=== PATIENT | female | born 1965 | race Caucasian/White ===

== ENCOUNTER 2024-04-26 14:09 | Inpatient (IN) | payer MEDICAID, OTHER ==
[~2024-04-26] VITALS: Ht 154.9 cm; Wt 74.3 kg
--- NOTE | 2024-04-26 14:32 | ECG ---
[facility] Test Date: 2024-04-26 Test Time: 14:31:17 Pat Name: CAESAR SMITH Department: ER Room: Gender: F Ware Dresser: LILI : 1965 Requested By: NURIA PADILLA Order Number: [id number] Reading MD: Measurements Intervals [place] Rate: 111 P: 77 ND: 201 QRS: 73 QRSD: 60 T: -71 QT: 276 QTc: 375 Interpretive Statements Sinus tachycardia Borderline prolonged ND interval Biatrial enlargement Low voltage, precordial leads Anteroseptal infarct, old Borderline repolarization abnormality Baseline wander in lead(s) II,V5 Please click the below link to view image of tracing.
--- NOTE | 2024-04-26 14:34 | ED.PDOC ---
History of Present Illness HPI Comments 59-year-old female came to the ER stating that she has been having palpitations for the past few days. She also states that she was eating something when some of the food got stuck in her throat causing her to rash nausea vomiting. She is unable to tolerate any liquids or solid food. She did go to [facility] yesterday for which she patient admitted. Patient left [facility] because no one was taking care of her. After leaving the hospitalist she came here. Her heart rate was 126. She does have a history of SVT hypotension. She does take metoprolol daily. She denies shortness a breath. She denies any other symptoms. Chief Complaint: Palpitations Time Seen by MD: 14:24 Primary Care Provider: none Reviewed Notes: Nurses Notes, Medications, Allergies Allergies: Coded Allergies: Erythromycin (Verified Allergy, Unknown, 04/26/24) Morphine (Verified Allergy, Unknown, 04/26/24) Information Source: Patient Mode of Arrival: Ambulatory Severity: Moderate Timing: Days Duration: Since onset Past Medical History PAST MEDICAL HISTORY: HTN Surgical History: Denies all surgeries MANAGER INTRANET History: No Pertinent MANAGER INTRANET History Social History Smoker: Non-Smoker Alcohol: Denies ETOH Use Drugs: Denies Drug Use Constitutional: denies: chills, diaphoresis, fatigue, fever, malaise, sweats, weakness, others EENTM: denies: blurred vision, double vision, ear bleeding, ear discharge, ear drainage, ear pain, ear ringing, eye pain, eye redness, hearing loss, mouth pain, mouth swelling, nasal discharge, nose bleeding, nose congestion, nose pain, photophobia, tearing, throat pain, throat swelling, voice changes, others Respiratory: denies: cough, hemoptysis, orthopnea, SOB at rest, shortness of breath, SOB with excertion, stridor, wheezing, others Cardiovascular: reports: palpitations; denies: chest pain, dizzy spells, diaphoresis, Dyspnea on exertion, edema, irregular heart beat, left arm pain, lightheadedness, PND, syncope, others Gastrointestinal: denies: abdomen distended, abdominal pain, blood streaked bowels, constipated, diarrhea, dysphagia, difficulty swallowing, hematemesis, melena, nausea, poor appetite, poor fluid intake, rectal bleeding, rectal pain, vomiting, others Genitourinary: denies: abnormal vagina bleeding, burning, dyspareunia, dysuria, flank pain, frequency, hematuria, incontinence, pain, , vagina discharge, urgency, others Neurological: denies: dizziness, fainting, headache, left sided numbness, left sided weakness, numbness, paresthesia, pre-existing deficit, right sided numbness, right sided weakness, seizure, speech problems, tingling, tremors, weakness, others Musculoskeletal: denies: back pain, gout, joint pain, joint swelling, muscle pain, muscle stiffness, neck pain, others Integumetry: denies: bruises, change in color, change in hair/nails, dryness, laceration, lesions, lumps, rash, wounds, others Allergic/Immunocompromised: denies: Difficulty Healing, Frequent Infections, Hives, Itching, others Hematologic/Lymphatic: denies: anemia, blood clots, easy bleeding, easy bruising, swollen glands, others Endocrine: denies: excessive hunger, excessive sweating, excessive thirst, excessive urination, flushing, intolerance to cold, intolerance to heat, unexplained weight gain, unexplained weight loss, others Psychiatric: denies: anxiety, bipolar disorder, depression, hopeless, panic disorder, schizophrenia, sleepless, suicidal, others Physical Exam General Appearance: Moderate Distress HEENT: Normal ENT Inspection, Pharynx Normal, TMs Normal Neck: Full Range of Motion, Non-Tender, Normal, Normal Inspection Respiratory: Chest Non-Tender, Lungs Clear, No Accessory Muscle Use, No Respiratory Distress, Normal Breath Sounds Cardiovascular: Tachycardia Breast Exam: Deferred Gastrointestinal: No Organomegaly, Non Tender, No Pulsatile Mass, Normal Bowel Sounds, Soft Genitalia: Deferred Pelvic: Deferred Rectal: Deferred Extremities: No calf tenderness, Normal capillary refill, Normal inspection, Normal range of motion, Non-tender, No pedal edema Musculoskeletal : Apperance: Normal Neurologic: Alert, retread builder II-XII nml as Tested, No Motor Deficits, Normal Affect, Normal Mood, No Sensory Deficits Cerebellar Function: Normal Reflexes: Normal Skin: Dry, Normal Color, Warm Peripheral Pulses: 3+ Radial (R), 3+ Radial (L) Lymphatic: No Adenopathy Was a procedure done? Was a procedure done?: No Differential Dx Considerations may include: Foreign body Tachycardia X-Ray, Labs, Meds, VS Vital Signs Date Time Temp Pulse Resp B/P (MAP) Pulse Ox O2 Delivery O2 Flow Rate FiO2 04/26/24 14:21 98.3 120 17 118/84 (95) 94 Lab Test 04/26/24 14:35 Range/Units White Blood Count 9.5 4.4-10.8 10^3/uL Red Blood Count 5.22 H 4.0-5.20 10^6/uL Hemoglobin 15.9 12.2-16.2 g/dL Hematocrit 47.3 H 36.0-46.0 % Mean Corpuscular Volume 90.5 80.0-100.0 fL Mean Corpuscular Hemoglobin 30.5 28.0-32.0 pg Mean Corpuscular Hemoglobin Concent 33.6 32.0-36.0 g/dL Red Cell Distribution Width 13.3 11.8-14.3 % Platelet Count 263 140-450 10^3/uL Mean Platelet Volume 7.6 6.9-10.8 fL Neutrophils (%) (Auto) 72.1 37.0-80.0 % Lymphocytes (%) (Auto) 20.2 10.0-50.0 % Monocytes (%) (Auto) 6.7 0.0-12.0 % Eosinophils (%) (Auto) 0.4 0.0-7.0 % Basophils (%) (Auto) 0.6 0.0-2.0 % Neutrophils # (Auto) 6.8 1.6-8.6 10 ^3/uL Lymphocytes # (Auto) 1.9 0.4-5.4 10 ^3/uL Monocytes # (Auto) 0.6 0-1.3 10 ^3/uL Eosinophils # (Auto) 0 0-0.8 10 ^3/uL Basophils # (Auto) 0.1 0-0.2 10 ^3/uL Nucleated Red Blood Cells 0.1 % Sodium Level Pending Potassium Level Pending Chloride Level Pending Carbon Dioxide Level Pending Anion Gap Pending Blood Urea Nitrogen Pending Creatinine Pending Glomerular Filtration Rate Calc Pending BUN/Creatinine Ratio Pending Serum Glucose Pending Calcium Level Pending Phosphorus Level Pending Magnesium Level Pending Troponin I High Sensitivity Pending B-Type Natriuretic Peptide Pending Patient alert. Complaining of palpitations. Has a foreign body sensation in her esophagus. Vital stable. Answering all questions. She was given metoprolol. EKG reviewed does not show any acute changes. Considering glucagon. GI consultation for possible endoscope. Explained to the patient. Continue monitoring. Time of 1ST Reevaluation: 14:31 Reevaluation 1ST: Unchanged Patient Education/Counseling: Diagnosis, Treatment, Prognosis Family Education/Counseling: No Family Present Departure 1 Departure Time of Disposition: 14:33 Impression: Primary Impression: Chest pain of unknown etiology Additional Impressions: Palpitations Tachycardia Disposition: ADMITTED INPATIENT Admit to: Med Surg Condition: Guarded Critical Care Note Critical Care Time?: No Stability Stability form required: No Heart Score Heart Score: Heart Score Response (Comments) Value History Slightly Suspicious 0 EKG Normal 0 Age <45 0 Risk Factors No known risk factors 0 Troponin Normal limit 0 Total 0 JAMES CALLOWAY MD Apr 26, 2024 14:34
[2024-04-26 15:07] LABS: Basophils # (auto) 0.1 10 ^3/uL (0-0.2); Basophils % (auto) 0.6 % (0.0-2.0); Eosinophils # (auto) 0 10 ^3/uL (0-0.8); Eosinophils % (auto) 0.4 % (0.0-7.0); Hematocrit 47.3 % (36.0-46.0); Hemoglobin 15.9 g/dL (12.2-16.2); Lymphocytes # (auto) 1.9 10 ^3/uL (0.4-5.4); Lymphocytes % (auto) 20.2 % (10.0-50.0); Mean Corpuscular Hemoglobin 30.5 pg (28.0-32.0); Mean Corpuscular Hgb Conc. 33.6 g/dL (32.0-36.0); Mean Corpuscular Volume 90.5 fL (80.0-100.0); Monocytes # (auto) 0.6 10 ^3/uL (0-1.3); Monocytes % (auto) 6.7 % (0.0-12.0); Neutrophils # (auto) 6.8 10 ^3/uL (1.6-8.6); Neutrophils % (auto) 72.1 % (37.0-80.0); Nucleated Red Blood Cells % 0.1 %; Platelet Count (auto) 263 10^3/uL (140-450); Red Blood Cells 5.22 10^6/uL (4.0-5.20); Red Cell Distribution Width 13.3 % (11.8-14.3); White Blood Cell 9.5 10^3/uL (4.4-10.8)
[2024-04-26 15:12] LABS: Chloride 106 mmol/L (98-107); Potassium 3.7 mmol/L (3.5-5.1); Sodium 143 mmol/L (136-145)
[2024-04-26 15:13] LABS: Anion Gap 15 (5-15); Carbon Dioxide 22 mmol/L (20-31)
[2024-04-26 15:18] LABS: BUN/Creatinine Ratio 14.3 (10.0-20.0); Blood Urea Nitrogen 13 mg/dL (9-23); Glucose 91 mg/dL (74-106)
[2024-04-26 15:20] LABS: Phosphorus 3.7 mg/dL (2.4-5.1)
[2024-04-26 15:30] LABS: Calcium 10.7 mg/dL (8.7-10.4)
--- NOTE | 2024-04-26 15:42 | DVH ---
CLINICAL INFORMATION: 59 years old, Female; palpitations. TECHNIQUE: Single AP portable chest radiograph was obtained. COMPARISON: None FINDINGS: Lungs: Clear. Cardiac: Heart size is within normal limits. Pulmonary vasculature: Unremarkable. Mediastinum/arianne: Unremarkable. Bones: No acute osseous abnormality identified. Other: No other significant findings. IMPRESSION: No evidence of acute disease in the chest.
[2024-04-26 18:00] VITALS: RESP 16
[2024-04-26] MEDS: METOPROLOL TARTRATE 50 MG TAB PO ONE (18:02)
[2024-04-26] MEDS: SODIUM CHLORIDE 0.9% 1,000 ML IV ONE (18:03)
[2024-04-26 21:00] VITALS: RESP 16
[2024-04-26] MEDS: METOCLOPRAMIDE HCL 5MG/ml INJ 2ml VIAL IV ONE (22:03)
[2024-04-26 22:31] VITALS: BP 103/53; PULSE 103; RESP 18; TEMP 98.9; O2SAT 94
--- NOTE | 2024-04-26 22:48 | DVHHPRES ---
History of Present Illness Resident Creating Document: MINISTERIO PICKETT RESDIENT History of Present Illness This is 59-year-old female with past medical history of nonsustained ventricular tachycardia, asthma came to the hospital due to choking. Per patient, the patient was taking her breakfast (soap), felt that something is got stuck in her throat and caused her to vomit 2 times. Since morning time, the patient feels that some food got stuck in her throat. She was admitted at [facility] [place] yesterday, but per patient due to not getting proper care, patient left AMA. She also reports nausea, dysphagia, productive cough with mucus informed consent and mild substernal chest pain. Patient denies fever, palpitation, abdominal pain, diarrhea, or any recent sick contact PMHx: nonsustained ventricular tachycardia, asthma and per patient she was also has hiatal hernia PSHx: Cholecystectomy, appendectomy, lymphangioma (status post surgery, benign), bilateral tubal ligation Social history: Ex-smoker with 10 pack year history, denies current drug use Home medication: Metoprolol succinate 100 mg at morning time and 50 mg at evening time since 2018 Allergic history: Erythromycin and morphine Review of Systems Review of Systems General: patient denies fever, fatigue, weaknes, sweating, any recent changes in appetite and weight HEENT: No headaches, visiual changes, hearing loss, tinnitus, nasal congestion and discharge, and sore throat. Cardiovascular: Reports mild chest pain Respiratory: Reports choking Gastrointestinal: Reports nausea, and vomiting Genitourinary: No dysuria, hematuria, discharge, frequency, urgency, nocturia, incontinence, and urinary retention. Endocrine: No heat or cold intolerance, polydipsia, polyuria, and polyphagia. Neurological: No dizziness, extremity weakness and numbness, tremors, gait disturbance, seizures, and memory impairment. Psychiatric: Denies depression, anxiety,or insomnia. Musculoskeletal: Denies neck pain, stiffness and swelling, back pain, muscle weakness, joint pain, stiffness, swelling, or limited range of motion. Skin: No rashes, itching, skin lesion, changes in hair, nail, skin texture and breast. Hematologic/Lymphatic: Denies easy bruising, bleeding tendencies, or lymph node enlargement. Allergies: Coded Allergies: Erythromycin (Verified Allergy, Unknown, 04/26/24) Morphine (Verified Allergy, Unknown, 04/26/24) Exam Vital Signs Vital Signs Date Time Temp Pulse Resp B/P (MAP) Pulse Ox O2 Delivery O2 Flow Rate FiO2 04/26/24 21:47 98.9 103 18 103/53 (70) 94 98.9 04/26/24 18:00 Room Air* 0 21 Exam General Appearance: Alert, Oriented X3, Cooperative, No acute distress HEENT: Atraumatic, PERRLA, EOMI, Mucous membrane moist/pink Respiratory: Clear to auscultation, Normal air movement Cardiovascular: Regular rate, Normal S1, Normal S2, No murmurs, no chest wall tenderness Abdominal: Normal bowel sounds, Soft, No tenderness, No hepatospenomegaly, No masses Extremities: No clubbing, No cyanosis, No edema, Normal pulses, No tenderness/swelling Skin: No rashes, No breakdown, No significant lesion Neuro: Normal gait, Normal speech, Strength at 5/5 X4 ext, Normal tone, Sensation intact, Cranial nerves 3-12 NL, Reflexes 2+ Psych/Mental Status: Mental status NL, Mood NL Labs/Xrays Labs Test 04/26/24 14:35 Range/Units White Blood Count 9.5 4.4-10.8 10^3/uL Red Blood Count 5.22 H 4.0-5.20 10^6/uL Hemoglobin 15.9 12.2-16.2 g/dL Hematocrit 47.3 H 36.0-46.0 % Mean Corpuscular Volume 90.5 80.0-100.0 fL Mean Corpuscular Hemoglobin 30.5 28.0-32.0 pg Mean Corpuscular Hemoglobin Concent 33.6 32.0-36.0 g/dL Red Cell Distribution Width 13.3 11.8-14.3 % Platelet Count 263 140-450 10^3/uL Mean Platelet Volume 7.6 6.9-10.8 fL Neutrophils (%) (Auto) 72.1 37.0-80.0 % Lymphocytes (%) (Auto) 20.2 10.0-50.0 % Monocytes (%) (Auto) 6.7 0.0-12.0 % Eosinophils (%) (Auto) 0.4 0.0-7.0 % Basophils (%) (Auto) 0.6 0.0-2.0 % Neutrophils # (Auto) 6.8 1.6-8.6 10 ^3/uL Lymphocytes # (Auto) 1.9 0.4-5.4 10 ^3/uL Monocytes # (Auto) 0.6 0-1.3 10 ^3/uL Eosinophils # (Auto) 0 0-0.8 10 ^3/uL Basophils # (Auto) 0.1 0-0.2 10 ^3/uL Nucleated Red Blood Cells 0.1 % Sodium Level 143 136-145 mmol/L Potassium Level 3.7 3.5-5.1 mmol/L Chloride Level 106 98-107 mmol/L Carbon Dioxide Level 22 20-31 mmol/L Anion Gap 15 5-15 Blood Urea Nitrogen 13 9-23 mg/dL Creatinine 0.91 0.550-1.02 mg/dL Glomerular Filtration Rate Calc 74 >90 mL/min BUN/Creatinine Ratio 14.3 10.0-20.0 Serum Glucose 91 74-106 mg/dL Calcium Level 10.7 H 8.7-10.4 mg/dL Phosphorus Level 3.7 2.4-5.1 mg/dL Magnesium Level 2.2 1.6-2.6 mg/dL Troponin I High Sensitivity < 3 L </=34 ng/L B-Type Natriuretic Peptide 41.92 0-100 pg/mL Assessment/Plan Assessment/Plan Dysphagia, likely due to hiatal hernia History of hiatal hernia Chest x-ray and shows no acute intra thoracic abnormality, EKG shows normal sinus rhythm Protonix and metoclopramide IV fluid History of nonsustained ventricular tachycardia Continue metoprolol DIET: Cardiac diet DVT PROPHYLAXIS: Lovenox GI PROPHYLAXIS:: Protonix CODE STATUS: Goal of care discussed for more than 21 minutes, full code DISPOSITION: Med/surge Patient's status and paln discussed with the patient. Case discussed with Dr. Mackenzie Plan discussed with: Patient, Other (RN) Date of Service: Apr 27, 2024 Billing Provider: GUILLERMINA MACKENZIE MD Common Visit Codes: [id number] INP/OBS CARE (HIGH) MINISTERIO PICKETT RESDIJAME Apr 26, 2024 22:48 GUILLERMINA MACKENZIE MD Apr 28, 2024 09:36
[2024-04-26] MEDS ORDERED: METO1TAB9 (22:52)
[2024-04-26] MEDS ORDERED: LEVA1AER PO (22:52)
[2024-04-27] VITALS (7 sets, daily range): BP systolic 93–125; BP diastolic 46–68; PULSE 81–120; RESP 14–20; TEMP 97.7–98.1; O2SAT 93–97
[2024-04-27] MEDS: SODIUM CHLORIDE 0.9% 500 ML IV ONE (01:00)
[2024-04-27] MEDS ORDERED: ACETAMINOPHEN 325 MG TAB PO PRN (01:00)
[2024-04-27] MEDS ORDERED: HYDROcodone-ACET 5/325MG TAB PO PRN (01:00)
[2024-04-27] MEDS: ENOXAPARIN SOD 40 MG/0.4 ML SYRINGE SC ONE (02:28)
[2024-04-27] MEDS: METOCLOPRAMIDE HCL 5MG/ml INJ 2ml VIAL IV ONE (02:28)
[2024-04-27] MEDS: SODIUM CHLORIDE 0.9% 1,000 ML IV ONE (02:28)
[2024-04-27 06:50] LABS: Basophils # (auto) 0 10 ^3/uL (0-0.2); Basophils % (auto) 0.4 % (0.0-2.0); Eosinophils # (auto) 0.1 10 ^3/uL (0-0.8); Hematocrit 44.1 % (36.0-46.0); Hemoglobin 14.3 g/dL (12.2-16.2); Lymphocytes # (auto) 2.2 10 ^3/uL (0.4-5.4); Lymphocytes % (auto) 25.6 % (10.0-50.0); Mean Corpuscular Hemoglobin 30.7 pg (28.0-32.0); Mean Corpuscular Hgb Conc. 32.3 g/dL (32.0-36.0); Mean Corpuscular Volume 95.1 fL (80.0-100.0); Monocytes # (auto) 0.7 10 ^3/uL (0-1.3); Monocytes % (auto) 8.1 % (0.0-12.0); Neutrophils # (auto) 5.5 10 ^3/uL (1.6-8.6); Neutrophils % (auto) 64.9 % (37.0-80.0); Nucleated Red Blood Cells % 0.1 %; Platelet Count (auto) 221 10^3/uL (140-450); Red Blood Cells 4.64 10^6/uL (4.0-5.20); Red Cell Distribution Width 13.9 % (11.8-14.3); White Blood Cell 8.5 10^3/uL (4.4-10.8)
[2024-04-27 07:10] LABS: Alanine Aminotransferase 27 U/L (7-40); Albumin 4.3 g/dL (3.2-4.8); Alkaline Phosphatase 68 U/L (46-116); Anion Gap 12 (5-15); Aspartate Aminotransferase 19 U/L (13-40); Bilirubin, Total 0.7 mg/dL (0.2-1.0); Calcium 9.4 mg/dL (8.7-10.4); Carbon Dioxide 21 mmol/L (20-31); Glucose 83 mg/dL (74-106); Potassium 3.6 mmol/L (3.5-5.1); Sodium 145 mmol/L (136-145); Total Protein 6.7 g/dL (5.7-8.2)
[2024-04-27 07:13] LABS: BUN/Creatinine Ratio 15.4 (10.0-20.0); Blood Urea Nitrogen 12 mg/dL (9-23)
[2024-04-27 07:15] LABS: Chloride 112 mmol/L (98-107)
[2024-04-27] MEDS: METOPROLOL SUCCINATE XL 50 MG TAB PO SCH ×2 (11:18→21:48)
--- NOTE | 2024-04-27 15:11 | DVHPNRES ---
Progress Note Date Seen: Apr 27, 2024 Resident Creating Document: SUSHANT RAGSDALE RESIDENT Has the PT tested + for MRSA If YES, has PT been informed?: No Medical Necessity Reason Pt with a Central, PICC or Fol: No Medical Necessity Reason Dysphagia Subjective Review of Systems This is 59-year-old female with past medical history of nonsustained ventricular tachycardia, hiatal hernia, and asthma came to the hospital due to choking. According to the patient, she was eating breakfast yesterday when she chocked on the food and liquid. She chocked on the liquid and solids. ad she vomited twice. She called EMS. Since morning time, the patient feels that some food got stuck in her throat. She was admitted at [facility] yesterday, but per patient due to not getting proper care, patient left AMA. She also reports nausea, dysphagia, productive cough with mucus informed. This is the about the 3times she is experiences this dyspepsia. She denied any weight loss, Patient denies fever, palpitation, abdominal pain, diarrhea, or any recent sick contact. Her home medication include Metoprolol succinate 100 mg at morning time and 50 mg at evening time since 2018. Her vitals data were 98.3. HR: 120, RR: 17, bp: 118/84. WBC: 9.5, HGB: 15.9. Chest x-ray revealed No evidence of acute disease in the chest. Constitutional: Denies fever no chills no feeling of malaise HEENT: Denies headache, ear pain, ear discharges, conjunctivitis, nasal discharge throat pain Cardiovascular: Denies chest pain, palpitation, orthopnea, PND, or pedal edema, fast heart rate Respiratory: Denies shortness of breath, cough cough, sputum production, hemoptysis, GI: Denies abdominal pain, nausea, vomiting, diarrhea, hematemesis, hematochezia, : Denies frequency, urgency, hematuria, Endocrine: Denies unintentional weight gain or weight loss, feeling of hot flashes, [place]: Denies easy bruising, bleeding disorders, epistaxis Musculoskeletal: Denies joint pains, muscle aches Psych: No evidence of depression, kenroy, suicidal ideation Objective vital signs Vital Sign Date Time Temp Pulse Resp B/P (MAP) Pulse Ox O2 Delivery O2 Flow Rate FiO2 04/27/24 12:51 97.8 120 15 103/54 (70) 96 97.8 04/27/24 00:24 Room Air* 0 21 Total Intake and Output 04/26/24 04/26/24 04/27/24 15:00 23:00 07:00 Intake Total 1000 ml 300 ml Balance 1000 ml 300 ml medications Current Medications Medications Dose Ordered Sig/Ricki Route Start Time Stop Time Status Last Admin Dose Admin Metoclopramide HCl 5 mg Q8HPRN PRN IV 04/27/24 01:00 Enoxaparin Sodium 40 mg DAILY SC 04/28/24 10:00 Acetaminophen 650 mg Q4HP PRN PO 04/27/24 01:00 Acetaminophen/ Hydrocodone Bitart 1 tab Q8HPRN PRN PO 04/27/24 01:00 Metoprolol Succinate 100 mg DAILY PO 04/27/24 10:00 04/27/24 11:18 100 MG Metoprolol Succinate 50 mg HS PO 04/27/24 22:00 Examination General Appearance: Alert, Oriented X3, Cooperative, No acute distress HEENT: Atraumatic, PERRLA, EOMI, Mucous membrane moist/pink Respiratory: Clear to auscultation, Normal air movement Cardiovascular: Tachycardia, Normal S1, Normal S2, No murmurs, no chest wall tenderness Abdominal: NO distention, no tenderness, bowel sounds present, no scars noted Extremities: No clubbing, No cyanosis, No edema, Normal pulses, No tenderness/swelling Skin: No rashes, No breakdown, No significant lesion Neuro: Normal gait, Normal speech, Strength at 5/5 X4 ext, Normal tone, Sensation intact, Cranial nerves 3-12 NL, Reflexes 2+ Psych/Mental Status: Mental status NL, Mood NL laboratory and microbiology Laboratory Tests 04/27/24 06:02 Test 04/27/24 06:02 Range/Units Serum Glucose 83 74-106 mg/dL Problem List/Assessment/Plan Problem List/Assessment/Plan Assessment Dysphagia rule out diffused esophageal spasm versus esophageal web. Sinus tachycardia (ekg) episode of hypotension Asthma hiatal hernia Plan Urinalysis UDS GI consult Monitor patient's heart and BP closely. She has received 1 leter a125ml/hr. if her blood pressure continues to remain low, I will consider adding Amiodarone bolus and drip Code status: Full Goal of care discussed for more than 30 minute Case and plan discussed with Dr. Baumann Plan discussed with: Patient My Orders My Orders Orders - SUSHANT RAGSDALE Procedure Category Date Status Time * Gi Dvh D[place]man CONS 04/27/24 Transmitted 14:08 Date of Service: Apr 27, 2024 Billing Provider: TOO BAUMANN MD Common Visit Codes: [id number] INP/OBS CARE(HIGH) SUSHANT RAGSDALE Apr 27, 2024 15:10 TOO BAUMANN MD Apr 27, 2024 21:55
--- NOTE | 2024-04-27 16:07 | DVHCONRES ---
Date Seen: Apr 27, 2024 Resident Creating Document: SANTIAGO STERLING RESIDENT History of Present Illness This is 59-year-old female with past medical history of nonsustained ventricular tachycardia, asthma came to the hospital due to choking. Per patient, the patient was taking her breakfast, felt that something is got stuck in her throat and caused her to vomit 2 times. Since morning time, the patient feels that some food got stuck in her throat. She was admitted at [facility] yesterday, but per patient due to not getting proper care, patient left AMA. She also reports nausea, dysphagia, productive cough with mucus informed consent and mild substernal chest pain. Patient denies fever, palpitation, abdominal pain, diarrhea, or any recent sick contact She has had 4 episodes past 6 months. Only happens with meat. No halitosis. PMHx: nonsustained ventricular tachycardia, asthma and per patient she was also has hiatal hernia PSHx: Cholecystectomy, appendectomy, lymphangioma (status post surgery, benign), bilateral tubal ligation Social history: Ex-smoker with 10 pack year history, denies current drug use Home medication: Metoprolol succinate 100 mg at morning time and 50 mg at jh brady time since 2017 Allergic history: Erythromycin and morphine Patient seen and examined at the bedside. Family History: MS (multiple sclerosis) G8 MOTHER Mitral valve disorder G8 FATHER Allergies: Coded Allergies: Erythromycin (Verified Allergy, Unknown, 04/26/24) Morphine (Verified Allergy, Unknown, 04/26/24) Home Meds Reported Medications Levalbuterol Tartrate (Levalbuterol Tartrate Hfa) 45 Mcg/Act Aer, 1-2 PUFF PO Q6HPRN PRN for wheezing 04/26/24 Metoprolol Succinate (Metoprolol Succinate Er) 100 Mg Tab 04/26/24 Current Medications Current Medications Medications (Trade) Dose Ordered Sig/Ricki Route PRN Reason Start Time Stop Time Status Last Admin Metoclopramide HCl (Reglan Injection) 5 mg Q8HPRN PRN IV NAUSEA / VOMITING 04/27/24 01:00 Enoxaparin Sodium (Lovenox) 40 mg DAILY SC 04/28/24 10:00 Acetaminophen (Tylenol Tablet) 650 mg Q4HP PRN PO PAIN SCALE 1-3 OR TEMP>100.4 04/27/24 01:00 Acetaminophen/ Hydrocodone Bitart ([place] 5/325MG Tab) 1 tab Q8HPRN PRN PO MODERATE PAIN (4-6 PAIN SCALE) 04/27/24 01:00 Metoprolol Succinate (Toprol Xl) 100 mg DAILY PO 04/27/24 10:00 04/27/24 11:18 Metoprolol Succinate (Toprol Xl) 50 mg HS PO 04/27/24 22:00 Vital Signs Vital Signs Date Time Temp Pulse Resp B/P (MAP) Pulse Ox O2 Delivery O2 Flow Rate FiO2 04/27/24 12:51 97.8 120 15 103/54 (70) 96 97.8 04/27/24 00:24 Room Air* 0 21 Physical Exam General Appearance: Alert, Oriented X3, Cooperative, No acute distress HEENT: Atraumatic, PERRLA, EOMI, Mucous membrane moist/pink Respiratory: Clear to auscultation, Normal air movement Cardiovascular: Regular rate, Normal S1, Normal S2, No murmurs, no chest wall tenderness Abdominal: Normal bowel sounds, Soft, No tenderness, No hepatospenomegaly, No masses Extremities: No clubbing, No cyanosis, No edema, Normal pulses, No tenderness/swelling Skin: No rashes, No breakdown, No significant lesion Neuro: Normal gait, Normal speech, Strength at 5/5 X4 ext, Normal tone, Sensation intact, Cranial nerves 3-12 NL, Reflexes 2+ Psych/Mental Status: Mental status NL, Mood NL Labs/Diagnostic Data Labs Test 04/27/24 06:02 04/26/24 14:35 Range/Units White Blood Count 8.5 4.4-10.8 10^3/uL Red Blood Count 4.64 4.0-5.20 10^6/uL Hemoglobin 14.3 12.2-16.2 g/dL Hematocrit 44.1 36.0-46.0 % Mean Corpuscular Volume 95.1 # 80.0-100.0 fL Mean Corpuscular Hemoglobin 30.7 28.0-32.0 pg Mean Corpuscular Hemoglobin Concent 32.3 32.0-36.0 g/dL Red Cell Distribution Width 13.9 11.8-14.3 % Platelet Count 221 140-450 10^3/uL Mean Platelet Volume 7.5 6.9-10.8 fL Neutrophils (%) (Auto) 64.9 37.0-80.0 % Lymphocytes (%) (Auto) 25.6 10.0-50.0 % Monocytes (%) (Auto) 8.1 0.0-12.0 % Eosinophils (%) (Auto) 1.0 0.0-7.0 % Basophils (%) (Auto) 0.4 0.0-2.0 % Neutrophils # (Auto) 5.5 1.6-8.6 10 ^3/uL Lymphocytes # (Auto) 2.2 0.4-5.4 10 ^3/uL Monocytes # (Auto) 0.7 0-1.3 10 ^3/uL Eosinophils # (Auto) 0.1 0-0.8 10 ^3/uL Basophils # (Auto) 0 0-0.2 10 ^3/uL Nucleated Red Blood Cells 0.1 % Sodium Level 145 136-145 mmol/L Potassium Level 3.6 3.5-5.1 mmol/L Chloride Level 112 H 98-107 mmol/L Carbon Dioxide Level 21 20-31 mmol/L Anion Gap 12 5-15 Blood Urea Nitrogen 12 9-23 mg/dL Creatinine 0.78 0.550-1.02 mg/dL Glomerular Filtration Rate Calc 89 >90 mL/min BUN/Creatinine Ratio 15.4 10.0-20.0 Serum Glucose 83 74-106 mg/dL Calcium Level 9.4 8.7-10.4 mg/dL Total Bilirubin 0.7 0.2-1.0 mg/dL Aspartate Amino Transferase (AST) 19 13-40 U/L Alanine Aminotransferase (ALT) 27 7-40 U/L Alkaline Phosphatase 68 46-116 U/L Total Protein 6.7 5.7-8.2 g/dL Albumin 4.3 3.2-4.8 g/dL Phosphorus Level 3.7 2.4-5.1 mg/dL Magnesium Level 2.2 1.6-2.6 mg/dL Troponin I High Sensitivity < 3 L </=34 ng/L B-Type Natriuretic Peptide 41.92 0-100 pg/mL Assessment Dysphagia to solids likely secondary to esophagitis esophagitis versus stricture History of hiatal hernia History of NSVT Asthma - controlled Plan: Given that the patient has had dysphagia to solids, 4 episodes in the past 6 months. We will schedule the patient for upper EGD 04/28/2024. NPO starting midnight Started pantoprazole 40 mg IV daily Plan discussed with patient in which all questions have been answered Case discussed with Dr. Fleming Plan discussed with: Patient SANTIAGO STERLING RESIDENT Apr 27, 2024 16:07
--- NOTE | 2024-04-27 16:13 | DVHINCON2 ---
Date Seen: Apr 27, 2024 Referring Physician MD Barbara Reason for Consultation Borderline BP, sinus tachycardia, hx of cardiac arrhythmia History of Present Illness This is a pleasant 59-year-old female who presented to emergency room with a chief complaint of foreign body airway obstruction. The patient reports she was eating her stew when she developed transient airway obstruction causing nausea and vomiting. Reports intermittent episodes for the past eight months but worsened on this past event. She is currently on metoprolol succinate 100 mg QD and 50 mg HS as prescribed by a previous test car driver in [place] in 2018. At that time, she underwent full cardiac work up including a non-ischemic cardiac catheterization and unremarkable transthoracic echocardiogram. She also underwent an event monitor with findings of nonsustained ventricular tachycardia for which she was placed on a beta-zoltan. Reports her normal systolic blood pressures range in between 90s-100s mmHg. She also reports when off beta- zoltan her heart rate can increase up to 200s bpm. Other medical history includes asthma, hiatal hernia, and obesity. Past Medical History Past medical history reviewed. No other significant than mentioned above. Past Surgical History Cholecystectomy Appendectomy Lymphangioma BTL Family History: MS (multiple sclerosis) G8 MOTHER Mitral valve disorder G8 FATHER Family History Family history reviewed. Social History Denies the use of illicit drugs, alcohol, or tobacco use. Allergies: Coded Allergies: Erythromycin (Verified Allergy, Unknown, 04/26/24) Morphine (Verified Allergy, Unknown, 04/26/24) Home Meds Reported Medications Levalbuterol Tartrate (Levalbuterol Tartrate Hfa) 45 Mcg/Act Aer, 1-2 PUFF PO Q6HPRN PRN for wheezing 04/26/24 Metoprolol Succinate (Metoprolol Succinate Er) 100 Mg Tab 04/26/24 Home Meds Home medications reviewed. Current Medications Current Medications Medications (Trade) Dose Ordered Sig/Ricki Route PRN Reason Start Time Stop Time Status Last Admin Metoclopramide HCl (Reglan Injection) 5 mg Q8HPRN PRN IV NAUSEA / VOMITING 04/27/24 01:00 Enoxaparin Sodium (Lovenox) 40 mg DAILY SC 04/28/24 10:00 Acetaminophen (Tylenol Tablet) 650 mg Q4HP PRN PO PAIN SCALE 1-3 OR TEMP>100.4 04/27/24 01:00 Acetaminophen/ Hydrocodone Bitart (Cool 5/325MG Tab) 1 tab Q8HPRN PRN PO MODERATE PAIN (4-6 PAIN SCALE) 04/27/24 01:00 Metoprolol Succinate (Toprol Xl) 100 mg DAILY PO 04/27/24 10:00 04/27/24 11:18 Metoprolol Succinate (Toprol Xl) 50 mg HS PO 04/27/24 22:00 Review of Systems Constitutional: Foreign object obstruction Ears, Nose, & Throat: No symptom reported Eyes: No symptom reported Neurological: No symptoms reported Pulmonary/Respiratory: No symptom reported Cardiovascular: No symptom reported Gastrointestinal: No symptom reported Genitourinary: No symptom reported Musculoskeletal: No symptom reported Skin: No symptom reported Psychiatric: No symptom reported Endocrine: No symptom reported Hemotologic/Lymphatic: No symptom reported Vital Signs Vital Signs Date Time Temp Pulse Resp B/P (MAP) Pulse Ox O2 Delivery O2 Flow Rate FiO2 04/27/24 12:51 97.8 120 15 103/54 (70) 96 97.8 04/27/24 00:24 Room Air* 0 21 Physical Exam General Appearance: Cooperative. Well developed. Well nourished. In no acute distress Head Exam: Normal inspection Neck Exam: Normal inspection. Non-tender. Normal alignment Pulmonary/Respiratory: Chest non-tender. Clear bilateral breath sounds Cardiovascular/Chest: Regular rate and rhythm. S1, S2. Sinus tachycardia 100s bpm. No murmurs. No JVD. Peripheral Pulses: 2+ Radial (R). 2+ Radial (L). 2+ Pedal (R). 2+ Pedal (L) Abdominal Exam: Normal bowel sounds. Soft. Nontender. No hepatospenomegaly. No masses Ankle Exam: Negative ankle edema Lower extremities: Negative lower extremity edema Neuro/Mental Status: A&O x4. Coherent Thoughts/Psych: Normal thought pattern. Appropriate mood and affect. Good judgement and insight Appearance: In no acute distress Skin Exam: Normal inspection. Normal color. Warm. Dry Labs/Diagnostic Data Labs Test 04/27/24 06:02 04/26/24 14:35 Range/Units White Blood Count 8.5 4.4-10.8 10^3/uL Red Blood Count 4.64 4.0-5.20 10^6/uL Hemoglobin 14.3 12.2-16.2 g/dL Hematocrit 44.1 36.0-46.0 % Mean Corpuscular Volume 95.1 # 80.0-100.0 fL Mean Corpuscular Hemoglobin 30.7 28.0-32.0 pg Mean Corpuscular Hemoglobin Concent 32.3 32.0-36.0 g/dL Red Cell Distribution Width 13.9 11.8-14.3 % Platelet Count 221 140-450 10^3/uL Mean Platelet Volume 7.5 6.9-10.8 fL Neutrophils (%) (Auto) 64.9 37.0-80.0 % Lymphocytes (%) (Auto) 25.6 10.0-50.0 % Monocytes (%) (Auto) 8.1 0.0-12.0 % Eosinophils (%) (Auto) 1.0 0.0-7.0 % Basophils (%) (Auto) 0.4 0.0-2.0 % Neutrophils # (Auto) 5.5 1.6-8.6 10 ^3/uL Lymphocytes # (Auto) 2.2 0.4-5.4 10 ^3/uL Monocytes # (Auto) 0.7 0-1.3 10 ^3/uL Eosinophils # (Auto) 0.1 0-0.8 10 ^3/uL Basophils # (Auto) 0 0-0.2 10 ^3/uL Nucleated Red Blood Cells 0.1 % Sodium Level 145 136-145 mmol/L Potassium Level 3.6 3.5-5.1 mmol/L Chloride Level 112 H 98-107 mmol/L Carbon Dioxide Level 21 20-31 mmol/L Anion Gap 12 5-15 Blood Urea Nitrogen 12 9-23 mg/dL Creatinine 0.78 0.550-1.02 mg/dL Glomerular Filtration Rate Calc 89 >90 mL/min BUN/Creatinine Ratio 15.4 10.0-20.0 Serum Glucose 83 74-106 mg/dL Calcium Level 9.4 8.7-10.4 mg/dL Total Bilirubin 0.7 0.2-1.0 mg/dL Aspartate Amino Transferase (AST) 19 13-40 U/L Alanine Aminotransferase (ALT) 27 7-40 U/L Alkaline Phosphatase 68 46-116 U/L Total Protein 6.7 5.7-8.2 g/dL Albumin 4.3 3.2-4.8 g/dL Phosphorus Level 3.7 2.4-5.1 mg/dL Magnesium Level 2.2 1.6-2.6 mg/dL Troponin I High Sensitivity < 3 L </=34 ng/L B-Type Natriuretic Peptide 41.92 0-100 pg/mL Assessment Foreign body obstruction Hx non-sustained ventricular tachycardia Hiatal hernia Asthma obesity Plan/Recommendation (Dr. Main) We recommend re-initiation of metoprolol succinate, with parameters, as prescribed by primary test car driver given history of NSVT in 2018. Per patient, SBPs on this medication runs in between 90s-100s mmHg without any symptoms. Given history of severe tachycardia when off BB, strongly recommend continuation as ordered. Follow-up with primary EP as scheduled, there is no further cardiac work-up indicated at this time. Kindly call if in need to re- consult. Thank you for allowing us to participate in this patient's care. This medical document was created using an electronic medical record system with voice recognition software and computerized dictation system. Although this document has been carefully reviewed, there might still be some phonetic and typographical errors. Occasional wrong-word or ``sound-alike substitutions may have occurred due to the inherent limitations of voice recognition software. These areas are purely typographical due to imperfections of the software programs and do not reflect any compromise in the patient's medical care. Please read the chart carefully and recognize, using context, where these substitutions have occurred. Plan discussed with: Patient, Other NYHA Physical activity limitations: NA Date of Service: Apr 27, 2024 Billing Provider: AZAR MOCK Cardiology Common Codes: [id number] INP/OBS CARE (High) AZAR MOCK Apr 27, 2024 16:13
[2024-04-27] MEDS: PANTOPRAZOLE 40 MG/10 ML VIAL INJ IV ONE (18:45)
[2024-04-27] MEDS ORDERED: METOPROLOL SUCCINATE XL 50 MG TAB PO SCH (22:00)
[2024-04-28] VITALS (7 sets, daily range): BP systolic 100–128; BP diastolic 49–67; PULSE 62–81; RESP 17–20; TEMP 97.5–97.9; O2SAT 96–98
[2024-04-28] MEDS: PANTOPRAZOLE 40 MG/10 ML VIAL INJ IV SCH ×2 (09:44→21:51)
[2024-04-28] MEDS: ENOXAPARIN SOD 40 MG/0.4 ML SYRINGE SC SCH (09:46)
[2024-04-28] MEDS: METOPROLOL SUCCINATE XL 50 MG TAB PO SCH (10:00)
[2024-04-28 10:04] LABS: Urine Bacteria None Seen /hpf (None Seen)
[2024-04-28 10:24] LABS: Cannabinoid Screen, Urine Pos (NEGATIVE)
[2024-04-28 10:42] LABS: Amphetamine Screen, Urine Neg (NEGATIVE); Barbiturate Scree,Urine Neg (NEGATIVE); Benzodiazephine Screen, Urine Neg (NEGATIVE); Cocaine Screen, Urine Neg (NEGATIVE); Opiate Scree,Urine Neg (NEGATIVE); Phencyclidine Screen, Urine Neg (NEGATIVE)
[2024-04-28 10:48] LABS: Urine Blood Negative /uL (Negative); Urine Clarity Clear (Clear); Urine Color Yellow (Yellow); Urine Hyaline Cast FEW /lpf (0 - 2); Urine Mucus FEW (None Seen); Urine Protein, UAD Negative (Negative); Urine Specific Gravity 1.029 (1.001-1.035); Urine Squamous Epithelial Cell FEW /hpf (<5); Urine Urobilinogen Normal (Negative); Urine WBC 2 /HPF (0-5); Urine pH 5.5 (5.0-9.0)
[2024-04-28] MEDS ORDERED: fentaNYL CITRATE 100 MCG/2 ML VL ONE (14:10)
[2024-04-28] MEDS ORDERED: LIDOCAINE VISCOUS 2% 15ML UD ONE (14:10)
[2024-04-28] MEDS ORDERED: MIDAZOLAM HCL 2MG/2ML 2ml VIAL (1mg/ml) ONE (14:10)
[2024-04-28] MEDS ORDERED: DexAMETHasone SOD PHOS 10MG/1ML VIAL INJ ONE (14:21)
--- NOTE | 2024-04-28 14:30 | DVHOP2 ---
Operative Report DATE OF OPERATION: 04/28/24 PROCEDURE: Upper Endoscopy with biopsy and dilation of esophagus unguided. PREOPERATIVE INDICATION: The patient is a 59 -year-old female undergoing endoscopy for oropharyngeal dysphagia and history of foreign body impaction POSTOPERATIVE DIAGNOSES: 1. 3 cm sliding-type hiatal hernia with grade a to B erosive esophagitis and a slight esophageal stricture or Schatzki's ring at the GE junction 2. Moderate gastroduodenitis 3. GE junction was dilated with Valencia number 44 and 48 in a serial fashion PROCEDURE PERFORMED BY: Yomi Reyes GI NURSE: Fadia SCOPE: Olympus videoendoscope. ASA CLASS: 2 PREOPERATIVE MEDICATIONS: Mac sedation, Dr. Ibanez PROCEDURE IN DETAIL: After obtaining an informed consent, the patient was placed on left lateral decubitus position. The patient was then sedated with the above medications. A bite block was placed between her teeth. The endoscope was then passed through the oropharynx, into the esophagus, and through the stomach and pylorus up to the second and third part of the duodenum. The endoscope was then withdrawn. The 2nd and 3rd part of the duodenal were normal. Duodenal bulb and postbulbar area showed moderate duodenitis with hyperemia erythema The pre-pyloric area antrum and body of the stomach showed [id number] gastritis with some hyperemia erythema. On retroflexion the fundus cardia and angularis were otherwise normal except for gastritis in the proximal stomach. Duodenal and gastric biopsies were obtained. The endoscope was then withdrawn into the distal esophagus where the patient had a 3 cm sliding-type hiatal hernia with a slight Schatzki's ring and grade a to B erosive esophagitis The remaining distal and proximal esophagus and oropharynx were unremarkable without any evidence of a circumferential fissures or furrows The endoscope was then withdrawn and subsequently the esophagus was dilated serially with Valencia number 44 and 48 in a serial fashion Repeat endoscopy confirmed adequate dilatation. There was superficial mucosal separation at the 7 o'clock position with minimal oozing GE junction biopsies were obtained. The endoscope was then withdrawn and patient tolerated the procedure well COMPLICATIONS : None SPECIMENS: Duodenal biopsies Gastric biopsies GE junction biopsies DISPOSITION: Transfer back to the floor Stable PLAN: 1. Await for biopsy result 2. Will place pt on Protonix 40 mg bid 3. Carafate 1 g p.o. 4 times a day 4. Start with clear liquid diet advance to full liquid then soft mechanical 5. Outpatient follow up with GI Services upon discharge for ongoing management of her GERD and dysphagia 6. Patient will need to be discharged on Protonix and Carafate YOMI REYES MD Apr 28, 2024 14:30
[2024-04-28] MEDS ORDERED: PROPOFOL 10 MG/ML 20 ML IV ONE (14:39)
[2024-04-28] MEDS: METOCLOPRAMIDE HCL 5MG/ml INJ 2ml VIAL IV PRN (14:52)
--- NOTE | 2024-04-28 15:53 | DVHPNRES ---
Progress Note Date Seen: Apr 28, 2024 Resident Creating Document: SUSHANT RAGSDALE RESIDENT Has the PT tested + for MRSA If YES, has PT been informed?: No Medical Necessity Reason Pt with a Central, PICC or Fol: No Medical Necessity Reason dysphagia EGD today Subjective Review of Systems This is 59-year-old female with past medical history of nonsustained ventricular tachycardia, hiatal hernia, and asthma came to the hospital due to choking. According to the patient, she was eating breakfast yesterday when she chocked on the food and liquid. She chocked on the liquid and solids. ad she vomited twice. She called EMS. Since morning time, the patient feels that some food got stuck in her throat. She was admitted at [facility] yesterday, but per patient due to not getting proper care, patient left AMA. She also reports nausea, dysphagia, productive cough with mucus informed. This is the about the 3times she is experiences this dyspepsia. She denied any weight loss, Patient denies fever, palpitation, abdominal pain, diarrhea, or any recent sick contact. Her home medication include Metoprolol succinate 100 mg at morning time and 50 mg at evening time since 2018. Her vitals data were 98.3. HR: 120, RR: 17, bp: 118/84. WBC: 9.5, HGB: 15.9. Chest x-ray revealed No evidence of acute disease in the chest. Patient was seen in the room today. At the time of my visit patient was lying in bed read pending EGD. Patient had an EGD done today at the report showed 3 cm sliding-type hiatal hernia with grade a to B erosive esophagitis and a slight esophageal stricture or Schatzki's ring at the GE junction. Moderate gastroduodenitis. GE junction was dilated with Valencia number 44 and 48 in a serial fashion. Plan is to keep her over night. Objective vital signs Vital Sign Date Time Temp Pulse Resp B/P (MAP) Pulse Ox O2 Delivery O2 Flow Rate FiO2 04/28/24 14:25 Room Air 04/28/24 14:25 70 20 04/28/24 14: 99.1 105/56 (72) 93 99.1 04/28/24 08:00 0 21 Total Intake and Output 04/27/24 04/27/24 04/28/24 15:00 23:00 07:00 Intake Total 1805 ml 0 ml Balance 1805 ml 0 ml medications Current Medications Medications Dose Ordered Sig/Ricki Route Start Time Stop Time Status Last Admin Dose Admin Metoclopramide HCl 5 mg Q8HPRN PRN IV 04/27/24 01:00 04/28/24 14:52 5 MG Enoxaparin Sodium 40 mg DAILY SC 04/28/24 10:00 Acetaminophen 650 mg Q4HP PRN PO 04/27/24 01:00 Acetaminophen/ Hydrocodone Bitart 1 tab Q8HPRN PRN PO 04/27/24 01:00 Metoprolol Succinate 50 mg HS PO 04/27/24 22:00 04/27/24 21:48 50 MG Metoprolol Succinate 100 mg DAILY PO 04/28/24 10:00 04/28/24 10:00 100 MG Pantoprazole Sodium 40 mg BID IV 04/28/24 22:00 Sucralfate 1 gm QID@0600,1130,1700,2200 PO 04/28/24 17:00 Examination General Appearance: Alert, Oriented X3, Cooperative, No acute distress HEENT: Atraumatic, PERRLA, EOMI, Mucous membrane moist/pink Respiratory: Clear to auscultation, Normal air movement Cardiovascular: Tachycardia, Normal S1, Normal S2, No murmurs, no chest wall tenderness Abdominal: NO distention, no tenderness, bowel sounds present, no scars noted Extremities: No clubbing, No cyanosis, No edema, Normal pulses, No tenderness/swelling Skin: No rashes, No breakdown, No significant lesion Neuro: Normal gait, Normal speech, Strength at 5/5 X4 ext, Normal tone, Sensation intact, Cranial nerves 3-12 NL, Reflexes 2+ Psych/Mental Status: Mental status NL, Mood NL laboratory and microbiology Laboratory Tests 04/27/24 06:02 Test 04/27/24 06:02 Range/Units Serum Glucose 83 74-106 mg/dL Problem List/Assessment/Plan Problem List/Assessment/Plan Assessment Dysphagia due to slight esophageal stricture or Schatzki's ring at the GE junction ( EGD). s/p dilation sliding-type hiatal hernia with grade a to B erosive esophagitis Sinus tachycardia (ekg) episode of hypotension Asthma Hiatal hernia Plan Protonix 40 mg bid Carafate 1 g p.o. 4 times a day Start with clear liquid diet advance to full liquid then soft mechanical Outpatient follow up with GI Services upon discharge for ongoing management of her GERD and dysphagia in 1-2 weeks Follow-up with primary EP as scheduled, there is no further cardiac work-up indicated at this time Follow-up with primary EP as scheduled Code status: Full Goal of care discussed for more than 20 minutes Case and plan discussed with Dr. Krueger Plan discussed with: Patient Date of Service: Apr 28, 2024 Billing Provider: TOO KRUEGER MD Common Visit Codes: [id number] INP/OBS CARE(HIGH) SUSHANT RAGSDALE RESIDENT Apr 28, 2024 15:53 TOO KRUEGER MD Apr 28, 2024 18:20
[2024-04-28] MEDS: SUCRALFATE 1 GM/10 ML ORAL SUSP PO SCH (17:16)
[2024-04-28 17:34] LABS: INR 1.03 (0.9-1.15); Partial Thromboplastin Time 26.6 SEC (24.5-34.5); Prothrombin Time 10.9 sec (9.3-11.8)
[2024-04-29 00:58] VITALS: BP 148/58; PULSE 73; RESP 20; TEMP 97.7; O2SAT 97
[2024-04-29 05:00] VITALS: BP 104/54; PULSE 74; RESP 20; TEMP 97.6; O2SAT 95
[2024-04-29 09:00] VITALS: BP 110/56; PULSE 63; RESP 17; TEMP 98.5; O2SAT 93
[2024-04-29 13:00] VITALS: BP 140/65; PULSE 72; RESP 17; TEMP 97.8; O2SAT 95
--- NOTE | 2024-04-29 13:36 | DVHDSRES ---
Discharge Summary Date of Admission Resident Creating Document: SUSHANT RAGSDALE RESIDENT Apr 26, 2024 at 22:48 Date of Discharge: Apr 29, 2024 Admitting Diagnosis dysphagia Labs/Diagnostic Data: PATIENT: CAESAR SMITH ACCT: [id number] UNIT: [id number] : 1965 LOC: ER ROOM / BED: / AGE / SEX: 59 / F ADM STATUS: REG ER SERVICE 1423 ORDERING PHYSICIAN: NURIA PADILLA MD PROCEDURE(s): CXR1 - CHEST XRAY 1 VIEW REASON: palpitations ORDER NUMBER(s): [id number], ACCESSION NUMBER(s): [id number] CLINICAL INFORMATION: 59 years old, Female; palpitations. TECHNIQUE: Single AP portable chest radiograph was obtained. COMPARISON: None FINDINGS: Lungs: Clear. Cardiac: Heart size is within normal limits. Pulmonary vasculature: Unremarkable. Mediastinum/arianne: Unremarkable. Bones: No acute osseous abnormality identified. Other: No other significant findings. IMPRESSION: No evidence of acute disease in the chest. ATED BY: ERIC ROBB DO DICTATED DATE/TIME: 04/26/24 1539 Laboratory Results Test 04/28/24 16:45 04/28/24 09:50 04/27/24 06:02 04/26/24 14:35 Prothrombin Time 10.9 sec (9.3-11.8) Prothrombin Time INR 1.03 (0.9-1.15) Activated Partial Thromboplast Time 26.6 SEC (24.5-34.5) Urine Color Yellow (Yellow) Urine Clarity Clear (Clear) Urine pH 5.5 (5.0-9.0) Urine Specific Prue 1.029 (1.001-1.035) Urine Protein Negative (Negative) Urine Ketones 1+ (Negative) Urine Blood Negative /uL (Negative) Urine Nitrite Negative (Negative) Urine Bilirubin Negative (Negative) Urine Urobilinogen Normal mg/dL (Negative) Urine Leukocyte Esterase Negative /uL (Negative) Urine RBC 1 /hpf (0 - 4) Urine Microscopic WBC 2 /HPF (0-5) Urine Squamous Epithelial Cells Few /hpf (<5) Urine Bacteria None seen /hpf (None Seen) Urine Hyaline Casts Few /lpf (0 - 2) Urine Mucus Few (None Seen) Urine Glucose Normal mg/dL (Normal) Urine Opiates Screen Neg (NEGATIVE) Urine Fentanyl Screen Neg (NEGATIVE) Urine Barbiturates Screen Neg (NEGATIVE) Urine Phencyclidine Screen Neg (NEGATIVE) Urine Amphetamines Screen Neg (NEGATIVE) Urine Benzodiazepines Screen Neg (NEGATIVE) Urine Cocaine Screen Neg (NEGATIVE) Urine Cannabinoids Screen Pos (NEGATIVE) White Blood Count 8.5 10^3/uL (4.4-10.8) Red Blood Count 4.64 10^6/uL (4.0-5.20) Hemoglobin 14.3 g/dL (12.2-16.2) Hematocrit 44.1 % (36.0-46.0) Mean Corpuscular Volume 95.1 fL (80.0-100.0) Mean Corpuscular Hemoglobin 30.7 pg (28.0-32.0) Mean Corpuscular Hemoglobin Concent 32.3 g/dL (32.0-36.0) Red Cell Distribution Width 13.9 % (11.8-14.3) Platelet Count 221 10^3/uL (140-450) Mean Platelet Volume 7.5 fL (6.9-10.8) Neutrophils (%) (Auto) 64.9 % (37.0-80.0) Lymphocytes (%) (Auto) 25.6 % (10.0-50.0) Monocytes (%) (Auto) 8.1 % (0.0-12.0) Eosinophils (%) (Auto) 1.0 % (0.0-7.0) Basophils (%) (Auto) 0.4 % (0.0-2.0) Neutrophils # (Auto) 5.5 10 ^3/uL (1.6-8.6) Lymphocytes # (Auto) 2.2 10 ^3/uL (0.4-5.4) Monocytes # (Auto) 0.7 10 ^3/uL (0-1.3) Eosinophils # (Auto) 0.1 10 ^3/uL (0-0.8) Basophils # (Auto) 0 10 ^3/uL (0-0.2) Nucleated Red Blood Cells 0.1 % Sodium Level 145 mmol/L (136-145) Potassium Level 3.6 mmol/L (3.5-5.1) Chloride Level 112 mmol/L (98-107) Carbon Dioxide Level 21 mmol/L (20-31) Anion Gap 12 (5-15) Blood Urea Nitrogen 12 mg/dL (9-23) Creatinine 0.78 mg/dL (0.550-1.02) Glomerular Filtration Rate Calc 89 mL/min (>90) BUN/Creatinine Ratio 15.4 (10.0-20.0) Serum Glucose 83 mg/dL (74-106) Calcium Level 9.4 mg/dL (8.7-10.4) Total Bilirubin 0.7 mg/dL (0.2-1.0) Aspartate Amino Transferase (AST) 19 U/L (13-40) Alanine Aminotransferase (ALT) 27 U/L (7-40) Alkaline Phosphatase 68 U/L (46-116) Total Protein 6.7 g/dL (5.7-8.2) Albumin 4.3 g/dL (3.2-4.8) Phosphorus Level 3.7 mg/dL (2.4-5.1) Magnesium Level 2.2 mg/dL (1.6-2.6) Troponin I High Sensitivity < 3 ng/L (</=34) B-Type Natriuretic Peptide 41.92 pg/mL (0-100) Other Laboratory Tests 04/27/24 06:02 Brief Hx & Hospital Course: Brief H and P and hospital course This 59-year-old female with a past medical history of nonsustained ventricular tachycardia, hiatal hernia, and asthma presented to the came to the hospital due to choking. According to the patient, she was eating breakfast the day prior to presentation when she chocked on the food. She chocked on the liquid and solids with an associated nausea, vomitng ,productive cough with mucus foam. She denied any weight loss,fever, palpitation, abdominal pain, diarrhea, or any recent sick contact. Her home medication include Metoprolol succinate 100 mg at morning time and 50 mg at evening time since 2018. Her vitals data were 98.3. HR: 120, RR: 17, bp: 118/84. WBC: 9.5, HGB: 15.9. Chest x-ray revealed no evidence of acute disease in the chest. On this admission, patient was seen by the GI and had EGD. It revealed 3 cm sliding-type hiatal hernia with grade a to B erosive esophagitis and a slight esophageal stricture or Schatzki's ring at the GE junction. Moderate gastroduodenitis. GE junction was dilated with Valencia number 44 and 48 in a serial fashion. Patient was kept on clear liquid overnight and in observation. Today, she felt great and tolerated soft mechanical diet. She was clear by GI for discharge. Patient is to follow up with the GI team in 1-2 weeks to review the biopsy report.s Examination General Appearance: Alert, Oriented X3, Cooperative, No acute distress HEENT: Atraumatic, PERRLA, EOMI, Mucous membrane moist/pink Respiratory: Clear to auscultation, Normal air movement Cardiovascular: Tachycardia, Normal S1, Normal S2, No murmurs, no chest wall tenderness Abdominal: NO distention, no tenderness, bowel sounds present, no scars noted Extremities: No clubbing, No cyanosis, No edema, Normal pulses, No tenderness/swelling Skin: No rashes, No breakdown, No significant lesion Neuro: Normal gait, Normal speech, Strength at 5/5 X4 ext, Normal tone, Sensation intact, Cranial nerves 3-12 NL, Reflexes 2+ Psych/Mental Status: Mental status NL, Mood NL Diagnoses Dysphagia due to slight esophageal stricture or Schatzki's ring at the GE junction ( EGD). s/p dilation sliding-type hiatal hernia with grade a to B erosive esophagitis Sinus tachycardia (ekg) episode of hypotension Asthma Hiatal hernia hypokalemia Discharge plan Home in stable condition protonix 40 mg bid Carafaate 1 gm qid follow up with discharge clinic in a week follow up with GI in 1-2 weeks to review biopsy report Follow up with the EP as schedule Case and discharge plan discussed with Dr. Krueger Consults/Reason for consult GI Dysphagia Operations or Procedures Operative Report DATE OF OPERATION: 04/28/24 PROCEDURE: Upper Endoscopy with biopsy and dilation of esophagus unguided. PREOPERATIVE INDICATION: The patient is a 59 -year-old female undergoing endoscopy for oropharyngeal dysphagia and history of foreign body impaction POSTOPERATIVE DIAGNOSES: 1. 3 cm sliding-type hiatal hernia with grade a to B erosive esophagitis and a slight esophageal stricture or Schatzki's ring at the GE junction 2. Moderate gastroduodenitis 3. GE junction was dilated with Valencia number 44 and 48 in a serial fashion PROCEDURE PERFORMED BY: Yomi Reyes GI NURSE: Fadia SCOPE: Olympus videoendoscope. ASA CLASS: 2 PREOPERATIVE MEDICATIONS: Onofre eason, Dr. Ibanez PROCEDURE IN DETAIL: After obtaining an informed consent, the patient was placed on left lateral decubitus position. The patient was then sedated with the above medications. A bite block was placed between her teeth. The endoscope was then passed through the oropharynx, into the esophagus, and through the stomach and pylorus up to the second and third part of the duodenum. The endoscope was then withdrawn. The 2nd and 3rd part of the duodenal were normal. Duodenal bulb and postbulbar area showed moderate duodenitis with hyperemia erythema The pre-pyloric area antrum and body of the stomach showed [id number] gastritis with some hyperemia erythema. On retroflexion the fundus cardia and angularis were otherwise normal except for gastritis in the proximal stomach. Duodenal and gastric biopsies were obtained. The endoscope was then withdrawn into the distal esophagus where the patient had a 3 cm sliding-type hiatal hernia with a slight Schatzki's ring and grade a to B erosive esophagitis The remaining distal and proximal esophagus and oropharynx were unremarkable without any evidence of a circumferential fissures or furrows The endoscope was then withdrawn and subsequently the esophagus was dilated serially with Valencia number 44 and 48 in a serial fashion Repeat endoscopy confirmed adequate dilatation. There was superficial mucosal separation at the 7 o'clock position with minimal oozing GE junction biopsies were obtained. The endoscope was then withdrawn and patient tolerated the procedure well COMPLICATIONS : None SPECIMENS: Duodenal biopsies Gastric biopsies GE junction biopsies DISPOSITION: Transfer back to the floor Stable PLAN: 1. Await for biopsy result 2. Will place pt on Protonix 40 mg bid 3. Carafate 1 g p.o. 4 times a day 4. Start with clear liquid diet advance to full liquid then soft mechanical 5. Outpatient follow up with GI Services upon discharge for ongoing management of her GERD and dysphagia 6. Patient will need to be discharged on Protonix and Carafate YOMI REYES MD Apr 28, 2024 14:30 DICTATED BY:YOMI REYES MD DICTATED DATE/TIME:04/28/24 1430 Condition at Discharge: Good Final Diagnosis/Problems List Dysphagia due to slight esophageal stricture or Schatzki's ring at the GE junction ( EGD). s/p dilation sliding-type hiatal hernia with grade a to B erosive esophagitis Sinus tachycardia (ekg) episode of hypotension hypokalemia Asthma Hiatal hernia Discharge Disposition: Home Discharge Statement: "Patient was advised to return to the ER or call 911 if any headaches, dizziness, shortness of breath, chest pain, abdominal pain, bleeding, fevers, or worsening of medical condition. Patient was counseled about treatment plan, medications, possible side effects, patientverbalized understanding. All questions were answered to the best of my ability. This discharge took greater then 30 minutes in planning, reviewing documentation, counseling the patient, and discussing with other team members." ASSESSMENT ASSESSMENT Assessment Date of Service: Apr 29, 2024 Billing Provider: TOO KRUEGER MD Common Visit Codes: 57986-WGP/OBS DISCH DAY >30min SUSHANT RAGSDALE RESIDENT Apr 29, 2024 13:36 TOO KRUEGER MD Apr 30, 2024 07:24
[2024-04-29] MEDS ORDERED: PANT40TA2 PO (13:40)
[2024-04-29] MEDS ORDERED: SUCR1SUS26 GT (13:40)
[2024-04-29 14:19] LABS: Basophils # (auto) 0 10 ^3/uL (0-0.2); Basophils % (auto) 0.3 % (0.0-2.0); Eosinophils # (auto) 0 10 ^3/uL (0-0.8); Eosinophils % (auto) 0.1 % (0.0-7.0); Hematocrit 41.6 % (36.0-46.0); Lymphocytes # (auto) 1.5 10 ^3/uL (0.4-5.4); Lymphocytes % (auto) 13.5 % (10.0-50.0); Mean Corpuscular Hemoglobin 29.9 pg (28.0-32.0); Mean Corpuscular Hgb Conc. 33.7 g/dL (32.0-36.0); Mean Corpuscular Volume 88.8 fL (80.0-100.0); Monocytes # (auto) 0.8 10 ^3/uL (0-1.3); Monocytes % (auto) 6.8 % (0.0-12.0); Neutrophils # (auto) 8.9 10 ^3/uL (1.6-8.6); Neutrophils % (auto) 79.3 % (37.0-80.0); Nucleated Red Blood Cells % 0.1 %; Platelet Count (auto) 243 10^3/uL (140-450); Red Blood Cells 4.69 10^6/uL (4.0-5.20); White Blood Cell 11.2 10^3/uL (4.4-10.8)
[2024-04-29 14:31] LABS: Chloride 106 mmol/L (98-107); Sodium 141 mmol/L (136-145)
[2024-04-29 14:32] LABS: Anion Gap 9 (5-15); Calcium 9.8 mg/dL (8.7-10.4); Carbon Dioxide 26 mmol/L (20-31)
[2024-04-29 14:37] LABS: BUN/Creatinine Ratio 8.2 (10.0-20.0); Blood Urea Nitrogen 6 mg/dL (9-23); Glucose 109 mg/dL (74-106); Potassium 3.4 mmol/L (3.5-5.1)
--- NOTE | 2024-04-29 15:04 | DVHPN2 ---
Progress Note Date Seen: Apr 29, 2024 Resident Creating Document: SANTIAGO STERLING RESIDENT Has the PT tested + for MRSA If YES, has PT been informed?: No Medical Necessity Reason Pt with a Central, PICC or Fol: No Subjective Review of Systems This is 59-year-old female with past medical history of nonsustained ventricular tachycardia, asthma came to the hospital due to choking. Per patient, the patient was taking her breakfast, felt that something is got stuck in her throat and caused her to vomit 2 times. Since morning time, the patient feels that some food got stuck in her throat. She was admitted at [facility] yesterday, but per patient due to not getting proper care, patient left AMA. She also reports nausea, dysphagia, productive cough with mucus informed consent and mild substernal chest pain. Patient denies fever, palpitation, abdominal pain, diarrhea, or any recent sick contact She has had 4 episodes past 6 months. Only happens with meat. No halitosis. PMHx: nonsustained ventricular tachycardia, asthma and per patient she was also has hiatal hernia PSHx: Cholecystectomy, appendectomy, lymphangioma (status post surgery, benign), bilateral tubal ligation Social history: Ex-smoker with 10 pack year history, denies current drug use Home medication: Metoprolol succinate 100 mg at morning time and 50 mg at evening time since 2017 Allergic history: Erythromycin and morphine Patient seen and examined at the bedside. No active complaint. Objective vital signs Vital Sign Date Time Temp Pulse Resp B/P (MAP) Pulse Ox O2 Delivery O2 Flow Rate FiO2 04/29/24 13:00 97.8 72 17 140/65 (90) 95 97.8 04/29/24 08:30 Room Air* 0 21 Total Intake and Output 04/28/24 04/28/24 04/29/24 15:00 23:00 07:00 Intake Total 100 ml 150 ml 400 ml Balance 100 ml 150 ml 400 ml medications Current Medications Medications Dose Ordered Sig/Ricki Route Start Time Stop Time Status Last Admin Dose Admin Metoclopramide HCl 5 mg Q8HPRN PRN IV 04/27/24 01:00 04/28/24 14:52 5 MG Enoxaparin Sodium 40 mg DAILY SC 04/28/24 10:00 04/29/24 09:35 40 MG Acetaminophen 650 mg Q4HP PRN PO 04/27/24 01:00 Acetaminophen/ Hydrocodone Bitart 1 tab Q8HPRN PRN PO 04/27/24 01:00 Metoprolol Succinate 50 mg HS PO 04/27/24 22:00 04/28/24 21:53 50 MG Metoprolol Succinate 100 mg DAILY PO 04/28/24 10:00 04/29/24 09:35 100 MG Pantoprazole Sodium 40 mg BID IV 04/28/24 22:00 04/29/24 09:34 40 MG Sucralfate 1 gm QID@0600,1130,1700,2200 PO 04/28/24 17:00 04/29/24 09:35 1 GM Examination General Appearance: Alert, Oriented X3, Cooperative, No acute distress HEENT: Atraumatic, PERRLA, EOMI, Mucous membrane moist/pink Respiratory: Clear to auscultation, Normal air movement Cardiovascular: Regular rate, Normal S1, Normal S2, No murmurs, no chest wall tenderness Abdominal: Normal bowel sounds, Soft, No tenderness, No hepatospenomegaly, No masses Extremities: No clubbing, No cyanosis, No edema, Normal pulses, No tenderness/swelling Skin: No rashes, No breakdown, No significant lesion Neuro: Normal gait, Normal speech, Strength at 5/5 X4 ext, Normal tone, Sensation intact, Cranial nerves 3-12 NL, Reflexes 2+ Psych/Mental Status: Mental status NL, Mood NL laboratory and microbiology Laboratory Tests 04/29/24 13:45 Test 04/29/24 13:45 Range/Units Serum Glucose 109 H 74-106 mg/dL Labs and/or images reviewed: Labs reviewed by me, Image(s) reviewed by me Problem List/Assessment/Plan Problem List/Assessment/Plan Dysphagia to solids likely secondary to slight stricture/Schatzki ring Grade a to B erosive esophagitis Sliding-type hiatal hernia GERD History of NSVT Asthma - controlled EGD completed 04/28 shows 3 cm sliding-type hiatal hernia with grade a to B erosive esophagitis and slight esophageal stricture or Schatzki ring at the GE junction. Plan: Continue Protonix 40 mg b.i.d. and Carafate 1 g q.i.d.. Advanced diet to soft. Patient will need outpatient follow up with GI services upon discharge for ongoing management for her GERD and dysphagia. Stable to be discharged. Plan discussed with patient in which all questions have been answered Case discussed with Dr. Fleming Plan discussed with: Patient SANTIAGO STERLING RESIDENT Apr 29, 2024 15:04
[2024-04-29] MEDS: POTASSIUM EFFERVESENT TAB 25 MEQ GT ONE (15:15)
[2024-04-29] MEDS ORDERED: POTA-36 PO (19:29)
== END 2024-04-29 15:32 | disposition home or self-care (01) | DRG 241 ==
LOC: ER 14:09 → OVERFLOW 22:48 → WEST WING 23:41
PROVIDERS: ADMIT Internal Medicine; ATTEND Internal Medicine
PROC: 0DB68ZX Excision of Stomach, Via Natural or Artificial Opening Endoscopic, Diagnostic (ICD-10-PCS; 2024-04-28)
PROC: 0DB48ZX Excision of Esophagogastric Junction, Via Natural or Artificial Opening Endoscopic, Diagnostic (ICD-10-PCS; 2024-04-28)
PROC: 0D758ZZ Dilation of Esophagus, Via Natural or Artificial Opening Endoscopic (ICD-10-PCS; 2024-04-28)
PROC: 0DB98ZX Excision of Duodenum, Via Natural or Artificial Opening Endoscopic, Diagnostic (ICD-10-PCS; principal; 2024-04-28 14:10)
DX: K29.90 Gastroduodenitis, unspecified, without bleeding (principal); K22.2 Esophageal obstruction; K22.10 Ulcer of esophagus without bleeding; K44.9 Diaphragmatic hernia without obstruction or gangrene; J45.909 Unspecified asthma, uncomplicated; I10 Essential (primary) hypertension; K29.70 Gastritis, unspecified, without bleeding; E66.9 Obesity, unspecified; E87.6 Hypokalemia; R00.0 Tachycardia, unspecified; Z88.1 Allergy status to other antibiotic agents; Z88.5 Allergy status to narcotic agent; Z90.49 Acquired absence of other specified parts of digestive tract; Z87.891 Personal history of nicotine dependence; Z82.0 Family history of epilepsy and other diseases of the nervous system; Z68.31 Body mass index [BMI] 31.0-31.9, adult
CPT/HCPCS: 36415; 71045; 80048; 80053; 80307; 81001; 83735; 83880; 84100; 84484; 85025; 85610; 85730; 93005; G0378; J1100; J2250; J2470; J2704